=== PATIENT | male | born 1990 | race Caucasian/White ===

== ENCOUNTER 2017-10-20 02:48 | Inpatient (IN) | payer OTHER ==
[~2017-10-20] VITALS: Ht 162.6 cm; Wt 73.7 kg
[2017-10-20 02:53] VITALS: Ht 162.6 cm; Wt 73.7 kg
[2017-10-20 04:00] LABS: BASOPHIL % 0.3 % (0-2); PLATELET COUNT 297 x10^3mcL (130-400); RED CELL DISTRIBUTION WIDTH 13.4 % (11.5-14.5)
[2017-10-20 04:01] LABS: CALCIUM 8.7 mg/dL (8.5-10.1); CARBON DIOXIDE 22.3 mmol/L (21-32); CHLORIDE SERUM 107 mmol/L (98-107); CREATININE SERUM 0.8 mg/dL (0.7-1.3); GFR1 > 60 mL/min; GLUCOSE SERUM 108 mg/dL (74-106); POTASSIUM SERUM 3.7 mmol/L (3.5-5.1); SODIUM SERUM 145 mmol/L (136-145)
[2017-10-20 04:07] LABS: ALKALINE PHOSPHATASE 77 U/L (46-116); ALT/SGPT 32 U/L (16-63); AST/SGOT 16 U/L (15-37); BILIRUBIN TOTAL 0.37 mg/dL (0.20-1.00); TOTAL PROTEIN, SERUM 7.9 g/dL (6.4-8.2)
[2017-10-20 10:55] VITALS: BP 119/74
[2017-10-20 13:29] LABS: MAGNESIUM 1.9 mg/dL (1.8-2.4)
[2017-10-20 13:39] LABS: T3 TOTAL 1.28 ng/mL
[2017-10-20 13:40] LABS: FREE T4 1.31 ng/dL (0.76-1.46); FREE THYROXINE INDEX 3.6 ug/dL (1.4-4.5); T4(THYROXINE) 10.6 ug/dL (4.7-13.3)
[2017-10-20 13:56] VITALS: BP 102/53
[2017-10-20 14:09] VITALS: BP 102/53
[2017-10-20 15:28] LABS: microscopic required? NO
[2017-10-20 15:46] LABS: UA SPECIFIC GRAVITY 1.025 (1.005-1.035); urine erythrocyte NEGATIVE (NEGATIVE)
[2017-10-20 16:02] LABS: AMPHETAMINE QUAL UR NONE DETECTED (NEG <=1000)
[2017-10-20 17:08] VITALS: BP 109/50
[2017-10-20 20:55] VITALS: BP 113/56
[2017-10-21 05:26] VITALS: BP 104/67
[2017-10-21 06:18] LABS: BASOPHIL % 0.3 % (0-2); PLATELET COUNT 247 x10^3mcL (130-400); RED CELL DISTRIBUTION WIDTH 14.1 % (11.5-14.5)
[2017-10-21 06:38] LABS: CALCIUM 8.5 mg/dL (8.5-10.1); CARBON DIOXIDE 25.3 mmol/L (21-32); CHLORIDE SERUM 105 mmol/L (98-107); CREATININE SERUM 0.9 mg/dL (0.7-1.3); GFR1 > 60 mL/min; GLUCOSE SERUM 94 mg/dL (74-106); POTASSIUM SERUM 4.3 mmol/L (3.5-5.1); SODIUM SERUM 139 mmol/L (136-145)
[2017-10-21 09:24] VITALS: BP 122/76
[2017-10-21 13:17] VITALS: BP 109/64
[2017-10-21 17:41] VITALS: BP 109/57
[2017-10-21 20:51] VITALS: BP 113/67
[2017-10-22 05:15] VITALS: BP 110/54
[2017-10-22 06:01] LABS: BASOPHIL % 0.4 % (0-2); PLATELET COUNT 263 x10^3mcL (130-400); RED CELL DISTRIBUTION WIDTH 13.4 % (11.5-14.5)
[2017-10-22 06:17] LABS: CALCIUM 8.7 mg/dL (8.5-10.1); CARBON DIOXIDE 27.2 mmol/L (21-32); CHLORIDE SERUM 107 mmol/L (98-107); CREATININE SERUM 0.9 mg/dL (0.7-1.3); GFR1 > 60 mL/min; GLUCOSE SERUM 102 mg/dL (74-106); POTASSIUM SERUM 4.2 mmol/L (3.5-5.1); SODIUM SERUM 145 mmol/L (136-145)
[2017-10-22 07:58] VITALS: BP 116/78
[2017-10-22 12:46] VITALS: BP 115/72
[2017-10-22] MEDS ORDERED: PRI20 PO (16:36)
[2017-10-22] MEDS ORDERED: FOL1 PO (16:37)
[2017-10-22] MEDS ORDERED: THERAGRAN-M1 TA4 PO (16:37)
[2017-10-22] MEDS ORDERED: THI100 PO (16:37)
[2017-10-22 16:49] VITALS: BP 100/60
[2017-10-22] MEDS ORDERED: LEVAQUIN750 MG PO (17:12)
[2017-10-22] MEDS ORDERED: LAC PO (17:13)
[2017-10-22 17:18] VITALS: BP 100/60
[2017-10-22] MEDS ORDERED: ATIVAN0.5 M1 PO (17:33)
== END 2017-10-22 19:52 | disposition home or self-care (01) | DRG 896 ==
LOC: ED 02:48 → DU 06:49
PROVIDERS: Emergency Medicine; Family Medicine Sports Medicine; Student in an Organized Health Care Education/Training Program
DX: F10.129 Alcohol abuse with intoxication, unspecified (principal); J69.0 Pneumonitis due to inhalation of food and vomit; G92 Toxic encephalopathy; E87.2 Acidosis; Z88.8 Allergy status to other drugs, medicaments and biological substances; J45.909 Unspecified asthma, uncomplicated; T40.5X5A Adverse effect of cocaine, initial encounter; Y92.89 Other specified places as the place of occurrence of the external cause; Y90.9 Presence of alcohol in blood, level not specified; I16.0 Hypertensive urgency; R00.0 Tachycardia, unspecified; K21.9 Gastro-esophageal reflux disease without esophagitis
CPT/HCPCS: 83880; 84439; 90658; 94150; G0480; J1956; J2060; J2405; J3490; J7030; J7620; J7626; Q0092

== ENCOUNTER 2018-11-28 09:18 | Emergency (ER) | payer OTHER ==
[~2018-11-28] VITALS: Ht 160 cm; Wt 74.4 kg
[~2018-11-28 09:18] MED LIST: ATIVAN0.5 M1 PO; FOL1 PO; LAC PO; LEVAQUIN750 MG PO; PRI20 PO; THERAGRAN-M1 TA4 PO; THI100 PO
[2018-11-28 09:22] VITALS: Ht 160 cm; Wt 74.4 kg
[2018-11-28 10:21] LABS: BASOPHIL % 0.4 % (0-2); PLATELET COUNT 349 x10^3mcL (130-400); RED CELL DISTRIBUTION WIDTH 14.3 % (11.5-14.5)
[2018-11-28 10:26] LABS: CARBON DIOXIDE 24.7 mmol/L (21-32); CHLORIDE SERUM 101 mmol/L (98-107); CREATININE SERUM 0.9 mg/dL (0.7-1.3); GFR1 > 60 mL/min; GLUCOSE SERUM 100 mg/dL (74-106); POTASSIUM SERUM 3.8 mmol/L (3.5-5.1); SODIUM SERUM 139 mmol/L (136-145)
[2018-11-28 10:31] LABS: ALBUMIN 4.2 g/dL (3.4-5.0); ALKALINE PHOSPHATASE 83 U/L (46-116); ALT/SGPT 65 U/L (16-63); AST/SGOT 24 U/L (15-37); BILIRUBIN TOTAL 0.5 mg/dL (0.20-1.00)
[2018-11-28 10:36] LABS: TOTAL PROTEIN, SERUM 8.5 g/dL (6.4-8.2)
[2018-11-28 10:47] LABS: AMPHETAMINE QUAL UR NONE DETECTED (See below)
[2018-11-28 11:00] VITALS: BP 136/77
== END 2018-11-28 12:19 | disposition home or self-care (01) ==
LOC: ED 09:18
PROVIDERS: Emergency Medicine
DX: R07.89 Other chest pain (principal); F14.10 Cocaine abuse, uncomplicated; J45.909 Unspecified asthma, uncomplicated; Z88.1 Allergy status to other antibiotic agents
CPT/HCPCS: J2060; J7030; Q0092